=== PATIENT | female | born 1995 | race Caucasian/White ===

== ENCOUNTER → 2023-07-28 09:28 | Outpatient (REF) | payer OTHER, SELFPAY | LOC: WDC 09:28 | PROVIDERS: ATTENDING PHYSICIAN Physician Assistant Medical | DX: N60.12 Diffuse cystic mastopathy of left breast (principal); N63.14 Unspecified lump in the right breast, lower inner quadrant; N63.23 Unspecified lump in the left breast, lower outer quadrant | CPT/HCPCS: 76642 ==

== ENCOUNTER → 2023-10-30 13:16 | Outpatient (REF) | payer OTHER, SELFPAY | LOC: HWRAD 13:16 | PROVIDERS: ATTENDING PHYSICIAN Obstetrics & Gynecology; FAMILY PHYSICIAN Physician Assistant Medical | DX: Z34.90 Encounter for supervision of normal pregnancy, unspecified, unspecified trimester (principal) | CPT/HCPCS: 76801 ==

== ENCOUNTER → 2023-11-25 14:16 | Outpatient (REF) | payer OTHER, SELFPAY | LOC: PNTC 14:16 | PROVIDERS: ATTENDING PHYSICIAN Obstetrics & Gynecology | DX: Z36.9 Encounter for antenatal screening, unspecified (principal); Z36.82 Encounter for antenatal screening for nuchal translucency | CPT/HCPCS: 76801; 76813 ==

== ENCOUNTER → 2024-01-20 13:20 | Outpatient (REF) | payer OTHER, SELFPAY | LOC: PNTC 13:20 | PROVIDERS: ATTENDING PHYSICIAN Obstetrics & Gynecology | DX: Z34.82 Encounter for supervision of other normal pregnancy, second trimester (principal); Q60.2 Renal agenesis, unspecified | CPT/HCPCS: 76811 ==

== ENCOUNTER → 2024-02-03 11:45 | Outpatient (REF) | payer OTHER, SELFPAY | LOC: PNTC 11:45 | PROVIDERS: ATTENDING PHYSICIAN Obstetrics & Gynecology | DX: Q60.0 Renal agenesis, unilateral (principal) | CPT/HCPCS: 76815 ==

== ENCOUNTER → 2024-03-16 13:16 | Outpatient (REF) | payer OTHER, SELFPAY | LOC: PNTC 13:16 | PROVIDERS: ATTENDING PHYSICIAN Obstetrics & Gynecology | DX: Q60.2 Renal agenesis, unspecified (principal) | CPT/HCPCS: 76816 ==

== ENCOUNTER → 2024-04-20 13:59 | Outpatient (REF) | payer OTHER, SELFPAY | LOC: PNTC 13:59 | PROVIDERS: ATTENDING PHYSICIAN Obstetrics & Gynecology | DX: O36.8190 Decreased fetal movements, unspecified trimester, not applicable or unspecified (principal) | CPT/HCPCS: 59025 ==

== ENCOUNTER → 2024-04-27 13:32 | Outpatient (REF) | payer OTHER, SELFPAY | LOC: PNTC 13:32 | PROVIDERS: ATTENDING PHYSICIAN Obstetrics & Gynecology | DX: Q60.0 Renal agenesis, unilateral (principal) | CPT/HCPCS: 76816 ==

== ENCOUNTER 2024-06-08 19:58 | Inpatient (IN) | payer OTHER, SELFPAY ==
[2024-06-08 19:59] VITALS: BMI 31.3
[2024-06-08 20:41] LABS: % Basophils 0.4 % (0-2); % Eosinophils 0.8 % (0-6); % Immature Granulocytes 0.3 % (0-0.5); % Lymphocytes 29.8 % (20.5-51.1); % Monocytes 7.6 % (1.7-9.3); % Neutrophils 61.1 % (42.2-75.2); Absolute Eosinophils 0.1 10^3/uL (0-0.7); Absolute Monocytes 0.8 10^3/uL (0.1-0.6); Absolute Neutrophils 6.2 10^3/uL (1.4-6.5); Hematocrit 30.9 % (37.0-47.0); Hemoglobin 10.8 g/dL (12.0-16.0); Mean Corpuscular Hgb 31.1 pg (27.0-31.0); Nucleated Red Blood Cells % 0 %; Platelet Count 218 10^3/uL (130-400); Red Blood Cell Count 3.47 10^6/uL (4.20-5.40); Red Cell Dist. Width 13.1 % (11.5-14.5); White Blood Cell Count 10.2 10^3/uL (4.8-10.8)
[2024-06-08] MEDS: CYTOTEC 25 MICROGRAM VAG (20:54)
[2024-06-08] MEDS: TUMS CHEWABLE TABLET 400 MG PO (21:09)
[2024-06-08 21:10] LABS: ALT (SGPT) 15 U/L (0-35); AST (SGOT) 30 U/L (14-36); Albumin 3.6 g/dl (3.5-5.0); Alkaline Phosphatase 169 U/L (38-126); Blood Urea Nitrogen 14 mg/dl (7-17); Calcium 9.4 mg/dl (8.4-10.2); Carbon Dioxide 18 mmol/L (22-30); Chloride 104 mmol/L (98-107); Estimated Creatinine Clearance > 125 ml/min; Glucose 107 mg/dl (70-99); Sodium 131 mmol/L (135-145); Total Bilirubin 0.5 mg/dl (0.2-1.3); Total Protein 6.1 g/dl (6.3-8.2); eGFR > 60.00
[2024-06-08 21:25] LABS: Protein/creatinine Ratio 0.9; Urine Protein 124 mg/dl
[2024-06-08 21:29] VITALS: BP 145/99
[2024-06-09] MEDS: CYTOTEC 50 MICROGRAM PO (01:03)
[2024-06-09] MEDS: LR 1000 IV (05:05)
[2024-06-09] MEDS: STADOL 1 MG IV (05:05)
[2024-06-09] MEDS: CYTOTEC PO ×4 (06:14→17:05)
[2024-06-09] MEDS: TUMS CHEWABLE TABLET 400 MG PO (09:13)
[2024-06-09] MEDS: PITOCIN 30 UNITS/NSS 500 ML IV (09:13)
[2024-06-09] MEDS: ZOFRAN ODT (ORALLY DISINTEGRATING) 4 MG PO (13:34)
[2024-06-09] MEDS: SUBLIMAZE 100 MCG EPIDURAL (15:03)
[2024-06-09] MEDS: FENTANYL/BUPIVACAINE 100 EPIDURAL ×2 (15:03→23:42)
[2024-06-10] MEDS: BICITRA 30 ML PO (00:48)
[2024-06-10] MEDS: TYLENOL 1000 MG PO (00:48)
[2024-06-10] MEDS: ANCEF 10 IV (00:48)
[2024-06-10] MEDS: ZITHROMAX INFUSION 250 IV (01:12)
[2024-06-10] MEDS: CYTOTEC PO (02:27)
[2024-06-10] MEDS: ZYRTEC 10 MG PO (08:12)
[2024-06-10] MEDS: PRENATAL PLUS 1 TABLET PO (08:12)
[2024-06-10] MEDS: TORADOL 15 MG IV ×3 (08:13→19:29)
--- NOTE | 2024-06-10 11:20 | W.PN.ANS.POP ---
Anesthesia Post Operative
- Anesthesia Post Op Note
Vital Signs Stable-See Nursing Note: Yes
Airway Patent: Yes
Adequate Pain Control: Yes
Change in Mental Status: No
Current Postoperative Nausea & Vomiting: No
Anesthesia Complications: No
General Anesthetic Recall: No
Unplanned Admission: No
Post Op Hydration Adequate: Yes
[2024-06-10] MEDS: SENOKOT-S 1 TABLET PO (19:29)
[2024-06-10] MEDS: BENADRYL 25 MG PO (19:29)
[2024-06-10] MEDS: MYLICON 80 MG PO (21:14)
[2024-06-10] MEDS: TYLENOL 650 MG PO (23:44)
[2024-06-11] MEDS: TORADOL 15 MG IV (01:51)
[2024-06-11 05:11] LABS: Hematocrit 24.9 % (37.0-47.0); Hemoglobin 8.3 g/dL (12.0-16.0); Mean Corp Hgb Conc. 33.3 g/dL (33.0-37.0); Mean Corpuscular Volume 92.9 fL (81.0-99.0); Mean Platelet Volume 11.3 fL (7.4-10.4); Platelet Count 174 10^3/uL (130-400); Red Blood Cell Count 2.68 10^6/uL (4.20-5.40); Red Cell Dist. Width 13.3 % (11.5-14.5); White Blood Cell Count 14.5 10^3/uL (4.8-10.8)
[2024-06-11] MEDS: FEOSOL 325 MG PO ×2 (07:58→20:10)
[2024-06-11] MEDS: ZYRTEC 10 MG PO (07:58)
[2024-06-11] MEDS: TYLENOL 650 MG PO ×2 (07:59→12:51)
[2024-06-11] MEDS: PRENATAL PLUS 1 TABLET PO (07:59)
[2024-06-11 11:39] LABS: Syphilis/T. pallidum Ab Reflex Negative (Negative)
[2024-06-11] MEDS: MOTRIN 600 MG PO ×2 (12:51→23:15)
[2024-06-11] MEDS: PERCOCET 5/325 1 TABLET PO ×2 (20:10→23:16)
[2024-06-12] MEDS: PERCOCET 5/325 1 TABLET PO (05:23)
[2024-06-12] MEDS: MOTRIN 600 MG PO (05:23)
[2024-06-12] MEDS: TYLENOL PO (05:23)
[2024-06-12] MEDS: ZYRTEC 10 MG PO (08:40)
[2024-06-12] MEDS: PRENATAL PLUS 1 TABLET PO (08:40)
[2024-06-12] MEDS: FEOSOL 325 MG PO (08:41)
--- NOTE | 2024-06-12 10:45 | W.DS.TRANS ---
DC Summary - Histologist
-
Discharge Instructions:
Discharge Diagnosis/Procedures delivery
Instructions:
Stand-Alone Forms: LDRP Delivery
Changes to Home Medications: No
Discharge Medications:
DC Medications w/original date entered in [employer]
Flonase Allergy Relief 50 mcg intranasal DAILY 06/08/24
1 tab PO DAILY 06/08/24
Zyrtec 10 mg PO DAILY 06/08/24
ibuprofen 600 mg tablet 600 mg PO Q6HPRN PRN cramps #30 tabs 06/12/24
oxycodone-acetaminophen 5 mg-325 mg tablet 1 tab PO Q4HPRN PRN moderate pain #10 tabs 06/12/24
Home Medication Changes
Pending Results: No
Total time spent discharging patient (in min): 20
== END 2024-06-12 11:50 | disposition home or self-care (01) | DRG 787 ==
LOC: LDRP 19:58
PROVIDERS: Obstetrics & Gynecology; ADMITTING PHYSICIAN Obstetrics & Gynecology; ATTENDING PHYSICIAN Obstetrics & Gynecology; FAMILY PHYSICIAN Family Medicine
PROC: 3E033VJ Introduction of Other Hormone into Peripheral Vein, Percutaneous Approach (ICD-10-PCS; 2024-06-08)
PROC: 3E0P7VZ Introduction of Hormone into Female Reproductive, Via Natural or Artificial Opening (ICD-10-PCS; 2024-06-08)
PROC: 10H07YZ Insertion of Other Device into Products of Conception, Via Natural or Artificial Opening (ICD-10-PCS; 2024-06-09)
PROC: 10907ZC Drainage of Amniotic Fluid, Therapeutic from Products of Conception, Via Natural or Artificial Opening (ICD-10-PCS; 2024-06-09)
PROC: 10D00Z1 Extraction of Products of Conception, Low, Open Approach (ICD-10-PCS; 2024-06-10)
DX: O48.0 Post-term pregnancy (principal); D62 Acute posthemorrhagic anemia; O98.32 Other infections with a predominantly sexual mode of transmission complicating childbirth; O14.04 Mild to moderate pre-eclampsia, complicating childbirth; Z3A.40 40 weeks gestation of pregnancy; Z37.0 Single live birth; O62.0 Primary inadequate contractions; O76 Abnormality in fetal heart rate and rhythm complicating labor and delivery; O90.81 Anemia of the puerperium; Z63.4 Disappearance and death of family member; N83.8 Other noninflammatory disorders of ovary, fallopian tube and broad ligament; O32.8XX0 Maternal care for other malpresentation of fetus, not applicable or unspecified; O34.83 Maternal care for other abnormalities of pelvic organs, third trimester; A63.0 Anogenital (venereal) warts; O43.123 Velamentous insertion of umbilical cord, third trimester; Z82.49 Family history of ischemic heart disease and other diseases of the circulatory system; Z83.3 Family history of diabetes mellitus
CPT/HCPCS: 88307; 36415; 80053; 82570; 84156; 85025; 85027; 86780; 86850; 86900; 86901